=== PATIENT | male | born 1985 | race Caucasian/White ===

== ENCOUNTER → 2024-06-29 09:48 | Outpatient (REF) | payer BC, SELFPAY | LOC: RAD 09:48 | PROVIDERS: ATTENDING PHYSICIAN Internal Medicine Cardiovascular Disease; FAMILY PHYSICIAN Family Medicine | DX: R07.2 Precordial pain (principal); R00.2 Palpitations; R55 Syncope and collapse | CPT/HCPCS: 75574; Q9967 ==